=== PATIENT | male | born 1935 | race Caucasian/White ===

== ENCOUNTER 2023-09-10 08:05 | Emergency (ER) | payer MEDICARE, OTHER, SELFPAY ==
[2023-09-10 08:11] VITALS: BP 176/80; BMI 23.4
[2023-09-10 09:00] VITALS: BP 156/77
[2023-09-10 09:32] LABS: Hematocrit 29.1 % (39.0-52.0); Hemoglobin 9.3 g/dL (13.0-18.0); Mean Corpuscular Volume 68.1 fL (80.0-94.0); Red Blood Cell Count 4.27 10^6/uL (4.70-6.10); White Blood Cell Count 9.7 10^3/uL (4.8-10.8)
[2023-09-10 09:33] LABS: Mean Corpuscular Hgb 21.8 pg (27.0-31.0); Mean Platelet Volume 9.9 fL (7.4-10.4); Platelet Count 205 10^3/uL (130-400); Red Cell Dist. Width 17.5 % (11.5-14.5)
--- NOTE | 2023-09-10 09:36 | ED.GENMED ---
History of Present Illness
General
Chief Complaint: Breathing Problem
Source: patient
Exam Limitations: none
Time Seen by Provider: 09/10/23 08:08
Nursing documentation reviewed up to this point in time: agreed with
Travel History
Have you had any contact with someone who has COVID-19?: No
Do you have any symptoms of coronavirus? Fever > 100 degrees, chills, cough, shortness of breath, sore throat, loss of taste or smell, muscle aches, or headache?: No
History of Present Illness
History of Present Illness:
Patient status post clavicle fracture 5 days ago chemical fall, status post full dialysis session yesterday, presents to ED after waking up this morning short of breath. However, upon sitting and out of bed, his shortness of breath resolved
completely. At the time of evaluation ED, patient is without any complaints. Denies chest pain. Denies back pain. Denies leg pain or swelling. Denies nausea or vomiting. Patient denies previous history of similar symptoms.
Past History
Past History
ED Past Medical History: HTN, Hypercholesterolemia, NIDDM, Renal failure and Other (Constipation, irritable bowel syndrome)
ED Past Surgical History: Tonsilectomy and Other (Hemodialysis graft left upper arm)
Social History
Tobacco: Non-smoker
Alcohol: None
Drug: None
Personal:
Living: with family
Employment: Retired
Review of Systems
Review of Systems
Allergies reviewed?: Yes
All Other Systems: ROS reviewed and negative except as documented in HPI and ROS
Constitutional: Reports no symptoms; Denies fever
EENT: Reports no symptoms
Respiratory: Reports trouble breathing
Cardiac: Denies chest pain
ABD/GI: Reports no symptoms
: Reports no symptoms
Musculoskeletal: Reports no symptoms; Denies edema
Skin: Reports no symptoms
Neurological: Reports no symptoms
Phy Exam
Physical Exam
Physical Exam:
Physical Exam
General: no apparent distress, not acutely ill. afebrile
Head: nc/at. eomi
Neck: supple. no meningeal signs.
Heart: s1/s2 regular rate and rhythm, no murmur. equal radial pulses.
Lungs: no acute respiratory distress. clear bilaterally
Abdomen: normal bowel sounds. not tender.
Neuro: alert and oriented. no focal neurological deficits
Skin: no rash
Psychiatric: well kept. interactive and cooperative
Extremities: no edema. no calf tenderness.
Scores
Heart Failure Risk
Heart Failure Risk Score: Not Applicable
Course
Orders/Labs/Results
Orders:
Orders
09/10/23 08:10
Electrocardiogram (*1) Urgent
Reason for Study: Shortness of Breath
EKG- Treatment ONCE
09/10/23 09:20
CR Chest - 2 Views Urgent
Comment:
Reason For Exam: sob
09/10/23 09:21
Basic Metabolic Panel Urgent
Complete Blood Count/No Diff Urgent
Magnesium Urgent
NT-proBNP Urgent
Abnormal Lab Results
09/10/23
09:21
RBC 4.27 L 10^6/uL
(4.70-6.10)
Hgb 9.3 L g/dL
(13.0-18.0)
Hct 29.1 L %
(39.0-52.0)
MCV 68.1 L fL
(80.0-94.0)
MCH 21.8 L pg
(27.0-31.0)
MCHC 32.0 L g/dL
(33.0-37.0)
RDW 17.5 H %
(11.5-14.5)
Sodium 133 L mmol/L
(135-145)
Chloride 93 L mmol/L
(98-107)
Carbon Dioxide 34 H mmol/L
(22-30)
BUN 34 H mg/dl
(9-20)
Creatinine 4.1 H* mg/dL
(0.7-1.3)
Glucose 105 H mg/dl
(70-99)
09/10/23 09:21
09/10/23 09:21
Vital Signs
Initial and Last Documented VS:
Initial Vital Signs
Temp Pulse Resp BP Pulse Ox
98.2 F 72 16 176/80 98
09/10/23 08:11 09/10/23 08:11 09/10/23 08:11 09/10/23 08:11 09/10/23 08:11
Last Documented Vital Signs
Temp Pulse Resp BP Pulse Ox
98.2 F 69 23 145/72 97
09/10/23 08:11 09/10/23 10:15 09/10/23 10:15 09/10/23 10:00 09/10/23 10:15
MDM/Problems Addressed
MDM/Problems Addressed:
Patient remains asymptomatic with stable vital signs, without any acute respiratory distress during observation ED. H&H within normal limits. Chest x-ray without acute findings. Patient will be discharged in stable condition, to the care of his
family, with recommendation to follow-up with PCP for reevaluation, along with scheduled dialysis tomorrow.
*Critical Care Note
Total Time (30-74mins, 75-104mins- exclusive of procedures): Not Applicable
ED Attending Note
-
Portions of this chart may have been created with voice recognition software.� Occasional wrong word or��sound alike� substitutions may have occurred due to the inherent limitations of voice recognition software.
Discharge Plan
Departure
Patient Disposition: Home (Routine Discharge)
Date of Disposition: 09/10/23
Time of Disposition: 10:37
Patient with high blood pressure during this ER visit?: Yes
Discharge Problem:
Dyspnea
Instructions: Shortness of Breath (Dyspnea) (DC)
Prescriptions:
No Action
atorvastatin 40 MG tablet
40 mg PO DAILY
ropinirole 0.25 MG tablet
0.5 mg PO DAILY@1999
sertraline 50 MG tablet
100 mg PO DAILY
pantoprazole 40 MG tablet,delayed release (DR/EC)
40 mg PO BID 30 Days Qty: 60 0RF
acetaminophen [Tylenol Extra Strength] 500 mg Tablet
1,000 mg PO TIDPRN PRN (Reason: mild pain)
insulin glargine [Lantus Solostar U-100 Insulin] 100 unit/mL (3 mL) Insulin Pen
11 unit SC DAILY
Centrum Silver 400-250 mcg Tablet,Chewable
2 tab PO DAILY PRN (Reason: supplement)
ProRenal 8 mg iron-800 mcg-1,000 unit Tablet
1 tab PO SUTUTHSA@1200
Patient Comments:
09/10/2023, on non-dialysis days will take @1200.
ProRenal 8 mg iron-800 mcg-1,000 unit Tablet
1 tab PO MOWEFR@1600
Patient Comments:
09/10/2023, takes after dialysis on MoWeFr@1600.
mirtazapine 15 mg Tablet
7.5 mg PO DAILY@1999
sevelamer carbonate 800 mg Tablet
800 mg PO DAILY
Patient Comments:
09/10/2023, spouse states pt. only takes once a day in the morning despite being prescribed TID with meals.
Referrals:
Soni Johnson MD [Family Provider] -
Activity Restrictions/Additional Instructions:
As discussed, please follow-up with your primary care physician with any further concerns. Please return to ED with recurrent shortness of breath.
Interventions
Interventions:
*Risk Screen - Suicide Last Done: 09/10/23 08:11
*General Assessment Last Done: 09/10/23 08:11
*Neglect/Abuse Screening Last Done: 09/10/23 08:11
ED- Fall Risk Assessment Last Done: 09/10/23 08:59
*ED COVID-19 Vaccine History Last Done: 09/10/23 08:11
*Nursing Disposition Last Done: 09/10/23 10:54
ED- Cardiac Assessment Last Done: 09/10/23 08:11
ED- Pulmonary Assessment Last Done: 09/10/23 08:11
Discharge Date and Time
Discharge Date/Time: 09/10/23 10:55
[2023-09-10 09:54] LABS: NT-proBNP 9150 pg/ml
[2023-09-10 10:00] VITALS: BP 145/72
[2023-09-10 10:04] LABS: Blood Urea Nitrogen 34 mg/dl (9-20); Calcium 8.8 mg/dl (8.4-10.2); Carbon Dioxide 34 mmol/L (22-30); Chloride 93 mmol/L (98-107); Estimated Creatinine Clearance 13 ml/min; Glucose 105 mg/dl (70-99); Magnesium 2.3 mg/dl (1.6-2.3); Potassium 4.5 mmol/L (3.5-5.1); Sodium 133 mmol/L (135-145); eGFR 13.48
== END 2023-09-10 10:55 | disposition home or self-care (01) ==
LOC: EMR 08:05
PROVIDERS: EMERGENCY PHYSICIAN Emergency Medicine; FAMILY PHYSICIAN Family Medicine
DX: R06.00 Dyspnea, unspecified (principal); E78.00 Pure hypercholesterolemia, unspecified; I12.0 Hypertensive chronic kidney disease with stage 5 chronic kidney disease or end stage renal disease; N18.9 Chronic kidney disease, unspecified; E11.22 Type 2 diabetes mellitus with diabetic chronic kidney disease; K58.9 Irritable bowel syndrome, unspecified; N18.6 End stage renal disease; Z99.2 Dependence on renal dialysis; Z91.81 History of falling; Z88.5 Allergy status to narcotic agent
CPT/HCPCS: 99283; 71046; 80048; 83735; 83880; 85027; 93005

== ENCOUNTER → 2023-10-28 08:16 | Outpatient (REF) | payer MEDICARE, OTHER, SELFPAY | LOC: DHCBS HW 08:16 | PROVIDERS: ATTENDING PHYSICIAN Nuclear Medicine Nuclear Cardiology; FAMILY PHYSICIAN Family Medicine | DX: I42.8 Other cardiomyopathies (principal); R55 Syncope and collapse; I45.10 Unspecified right bundle-branch block | CPT/HCPCS: 93306 ==

== ENCOUNTER → 2023-11-21 12:53 | Outpatient (REF) | payer MEDICARE, OTHER, SELFPAY | LOC: RAD 12:53 | PROVIDERS: ATTENDING PHYSICIAN Surgery Vascular Surgery; FAMILY PHYSICIAN Family Medicine | DX: I77.0 Arteriovenous fistula, acquired (principal) | CPT/HCPCS: 93990 ==

== ENCOUNTER 2023-12-05 08:15 | Day surgery (SDC) | payer MEDICARE, OTHER, SELFPAY ==
[2023-12-05] VITALS (11 sets, daily range): BP systolic 181–207; BP diastolic 71–87; BMI 20.7
[2023-12-05 08:58] LABS: Glucose - Point of Care 176 mg/dl (70-99)
--- NOTE | 2023-12-05 09:05 | W.SUR.PREOP ---
Pre-Operative Surgical Note
-
I have examined this patient prior to the performance of the scheduled procedure.
The patient's condition is unchanged from the time of the current History and
Physical and the patient is able to undergo the scheduled procedure.
[2023-12-05 09:20] LABS: Hematocrit 32.6 % (39.0-52.0); Hemoglobin 10.1 g/dL (13.0-18.0); Mean Corpuscular Hgb 21.2 pg (27.0-31.0); Mean Corpuscular Volume 68.5 fL (80.0-94.0); Mean Platelet Volume 10.1 fL (7.4-10.4); Platelet Count 171 10^3/uL (130-400); Red Blood Cell Count 4.76 10^6/uL (4.70-6.10); Red Cell Dist. Width 18.1 % (11.5-14.5); White Blood Cell Count 10.2 10^3/uL (4.8-10.8)
[2023-12-05 09:58] LABS: INR 1.13; PT 14.5 Sec (11.4-14.6)
[2023-12-05 09:59] LABS: APTT 31.8 Sec (23.4-35.0)
--- NOTE | 2023-12-05 10:03 | W.SUR.POST ---
Surgical Immediate Post Op
Note
Pre Op Diagnosis: ESRD
Post Op Diagnosis: ESRD
Procedure Performed: LUE fistulagram, balloon angioplasty outflow vein stenosis
Primary Surgeon: Bruec
Anesthesia: locla and sedation
Estimated Blood Loss: <2cc
Fluids: see anesthesia flow sheet
Drains/Shunts: none
Specimens/Cultures: none
Doppler/Duplex/Angio (Y/N): Y
Complications: none
Operative Findings: +thrill
[2023-12-05 10:18] LABS: Glucose - Point of Care 137 mg/dl (70-99)
[2023-12-05 10:20] LABS: Blood Urea Nitrogen 39 mg/dl (9-20); Calcium 8.3 mg/dl (8.4-10.2); Carbon Dioxide 30 mmol/L (22-30); Chloride 99 mmol/L (98-107); Estimated Creatinine Clearance 12 ml/min; Glucose 141 mg/dl (70-99); Potassium 3.8 mmol/L (3.5-5.1); Sodium 136 mmol/L (135-145); eGFR 14.32
--- NOTE | 2023-12-05 10:28 | OR.RPT ---
Operative Report
Operative Report
PROCEDURE DATE: 12/05/2023
Preoperative diagnosis:
1. End-stage renal disease on hemodialysis.
2. Prolonged bleeding after hemodialysis.
Postoperative diagnosis: Same
Procedure:
1. Left upper extremity fistulogram and central venogram.
2. Balloon angioplasty of outflow vein stenosis with 7 mm angioplasty balloon.
Surgeon: Bruce
Dredge Master: None
Complications: None
Anesthesia: Local, sedation
Fluoroscopy:
3.1 min
13 mGy
1.80 Gy.cm2
Indications for procedure:
End-stage renal disease on hemodialysis with transposed basilic vein fistula. Prolonged bleeding after hemodialysis. Concern for central venous or outflow vein stenosis. Was/benefit/alternatives of fistulogram were discussed. Patient understood
all wish to proceed.
Description of procedure:
Patient was identified, brought to the operating room. Placed on the table in the supine position. After the adequate administration of anesthesia, the patient was prepped and draped in the standard surgical fashion. A standard preoperative
timeout was undertaken and everybody was in agreement with the plan.
Left upper extremity fistula was punctured in the standard fashion using micropuncture kit under direct duplex ultrasound guidance and a central facing direction. This was done in the distal upper arm. I tried to avoid puncturing the aneurysmal
portion and punctured just peripherally to there. A 6 Albanian sheath was then advanced over a 0.035 inch wire. Left upper extremity fistulogram and central venogram were then performed. This demonstrated aneurysmal outflow as could be seen on
exam. Just beyond this aneurysmal segment at the juncture with the more normal vein, there was a severe weblike stenosis. Beyond there there was a mild web created in opacity but did not appear to cause a severe stenosis. I then advanced my glide
catheter over the wire and perform central venogram. Initially I thought there may have been a left subclavian vein stenosis, but on repeat imaging I did not see any significant stenosis. At this point therefore I then exchanged for a [place] wire.
I then used a 7 mm angioplasty balloon to balloon the severe area of stenosis in the fistula just beyond the aneurysmal area. There is significant waist in the balloon that resolved nicely. With the balloon inflated I performed reflux fistulogram
that demonstrated widely patent arterial anastomosis. Completion fistulogram demonstrated excellent result with no residual stenosis of the stenotic area. At this point I was satisfied. Wires and catheters were withdrawn. A 4-0 Monocryl
pursestring stitch was placed around the sheath entry site and this was removed while the stitch was tied down. Manual pressure was also applied. Hemostasis was achieved. The patient tolerated the procedure well.
== END 2023-12-05 12:05 | disposition home or self-care (01) ==
LOC: CATH 08:15
PROVIDERS: ATTENDING PHYSICIAN Surgery Vascular Surgery; FAMILY PHYSICIAN Family Medicine; OTHER PHYSICIAN Nuclear Medicine Nuclear Cardiology
DX: T82.838A Hemorrhage due to vascular prosthetic devices, implants and grafts, initial encounter (principal); Y83.2 Surgical operation with anastomosis, bypass or graft as the cause of abnormal reaction of the patient, or of later complication, without mention of misadventure at the time of the procedure; I12.0 Hypertensive chronic kidney disease with stage 5 chronic kidney disease or end stage renal disease; E11.22 Type 2 diabetes mellitus with diabetic chronic kidney disease; N18.6 End stage renal disease; Z99.2 Dependence on renal dialysis; Z79.4 Long term (current) use of insulin
CPT/HCPCS: 36902; 76937; 80048; 82962; 85027; 85610; 85730; 86850; 86900; 86901; C1725; C1769; C1894

== ENCOUNTER 2024-02-21 05:53 | Emergency (ER) | payer MEDICARE, OTHER, SELFPAY ==
[2024-02-21 05:55] VITALS: BP 191/80; BMI 23.5
--- NOTE | 2024-02-21 06:17 | ED.GENMED ---
History of Present Illness
General
Chief Complaint: Fall
Source: patient and spouse
Exam Limitations: none
Time Seen by Provider: 02/21/24 06:12
Nursing documentation reviewed up to this point in time: agreed with
History of Present Illness
History of Present Illness:
The patient is an 89-year-old man who reports that he got up out of bed around 1 AM and fell onto the floor from a standing position onto his left side. The fall was witnessed by his who heard him scream. She reports that he vomited after the
fall but got back in bed and went to sleep. The patient denies headache at this time. He reports he is not exactly sure why he fell. His reports that from time to time he does get confused and wakes up at night. She denies any recent fever,
or any acute illnesses. His reports that she wanted him checked out because because his left side still hurts from the fall. Patient denies headache and vision changes. The patient reports he thinks he hit the back of his head during the
fall. Patient denies abdominal pain, nausea and vomiting at this time. He denies neck pain. He denies weakness and numbness of his arms and legs. Patient reports he feels well other than pain in his left rib area. Patient denies any other areas
of chest pain or shortness of breath. He denies cough. He denies any recent or current dizziness
Past History
Past History
ED Past Medical History: HTN, Hypercholesterolemia, NIDDM, Renal failure and Other (Constipation, irritable bowel syndrome)
ED Past Surgical History: Tonsilectomy and Other (Hemodialysis graft left upper arm)
Social History
Tobacco: Non-smoker
Alcohol: None
Drug: None
Personal:
Living: with family
Employment: Retired
Family History
Family History: Other
Review of Systems
Review of Systems
Allergies reviewed?: Yes
All Other Systems: ROS reviewed and negative except as documented in HPI and ROS
Constitutional: Reports no symptoms
EENT: Reports no symptoms
Respiratory: Reports no symptoms
Cardiac: Reports other (Chest wall pain)
ABD/GI: Reports vomiting
: Reports no symptoms
Musculoskeletal: Reports muscle stiffness
Skin: Reports no symptoms
Neurological: Reports no symptoms
Endocrine: Reports no symptoms
Hematologic/Lymphatic: Reports no symptoms
Psychiatric: Reports no symptoms
Phy Exam
Physical Exam
Physical Exam:
Physical Exam
General: no apparent distress, not acutely ill. Comfortable appearing. Conversational. Hard of hearing. Atraumatic appearing face and head. No areas of scalp contusion or tenderness.
Neck: supple. no meningeal signs. normal psoterior pharynx. Nontender C-spine
Heart: s1/s2 regular rate and rhythm, mild left lateral rib cage tenderness at nipple line without ecchymoses or erythema. No crepitus felt
Lungs: no acute respiratory distress. clear bilaterally. No vertebral spine tenderness throughout
Abdomen: Soft throughout. No tenderness on palpation. Nondistended. Normal bowel sounds
Neuro: alert and oriented. no focal neurological deficits. Cranial nerves symmetric bilaterally. Answers all questions. 5 out of 5 strength in all extremity
Skin: no rash
Psychiatric: well kept. interactive and cooperative
Extremities: no edema. no calf tenderness. Upper and lower extremities are nontender. Able to fully extend and flex both hips bilaterally without any pain
Course
Orders/Labs/Results
Orders:
Orders
02/21/24
Electrocardiogram (*1) Stat
Other Reason for Exam: CP
02/21/24 06:12
CT Head W/o Iv Contrast Urgent
Comment:
Reason For Exam: fall, hit head
Ribs, Left 3 View W/PA Chest CR [CR Ribs-left 3 Vw W/pa Chest] Urgent
Comment:
Reason For Exam: fall, left lateral rib pain
Vital Signs
Initial and Last Documented VS:
Initial Vital Signs
Temp Pulse Resp BP Pulse Ox
98.5 F 93 18 191/80 96
02/21/24 05:55 02/21/24 05:55 02/21/24 05:55 02/21/24 05:55 02/21/24 05:55
Last Documented Vital Signs
Temp Pulse Resp BP Pulse Ox
98.5 F 93 18 191/80 97
02/21/24 05:55 02/21/24 05:55 02/21/24 05:55 02/21/24 05:55 02/21/24 06:06
MDM/Problems Addressed
Differential Diagnosis Includes:
Rib fracture, rib contusion, closed head injury
MDM/Problems Addressed:
Patient presents after an acute fall with acute left lateral rib cage pain
Chronic conditions affecting care: HTN
Acute Exacerbation and/or Progression of Chronic Illness:
Patient is acutely hypertensive, however, he has not had his medication yet for dialysis. Patient has a nonfocal neurological exam there is no sign of stroke.
Acute Exacerbation and/or Progression of Chronic Illness: HTN
*Radiology
Radiology exam reviewed: preliminary read by ED provider (No rib fracture seen by me.) and radiology read reviewed
*Pulse Oximetry
Patient hypoxic: no
*EKG
Interpreted by ED Provider?: Yes
Interpretation: abnormal
Comparison EKG: changes noted
Rate: normal
Rhythm: sinus
[place]: left axis deviation
Interval: first degree heart block
QRS Pattern: normal QRS
Ischemia: non-specific ST changes
*Director [employer] Interpretation
Rate: normal
Interpretation: normal
Rhythm: sinus
*Critical Care Note
Total Time (30-74mins, 75-104mins- exclusive of procedures): 40 minutes
comment:
40 minutes of critical care given to the patient including discussing the case with Dr. Garcias from neurosurgery, as well as the trauma attending, Dr. Lomas from [facility].
Time also spent discussing the case and explaining condition to the patient's and patient, as well as frequently reassessing his mental status and reviewing his CAT scan and x-ray
Data Reviewed
Review of Other/Old Records Reveals: Operative Reports (Vascular surgery operative report reviewed from 11/2023 when patient had prolonged bleeding after hemodialysis)
Source: patient and spouse
Patient Management
Social determinants of health affecting care: Living situation and Strong social support
Discussion with other providers: Other (Dr. Adan from neurosurgery who reviewed patient's CT and recommends transfer to [facility])
Escalation/DeEscalation of care consider admission/obs:
Patient formally accepted to [facility] trauma for traumatic subdural hematoma. Remains very well and stable in the emergency department. Continues to have no neck pain or any difficulty breathing. Abdomen remains completely soft and nontender.
Update Note
Update Note:
gave written consent for transfer to [facility]. Accepting doc is Dr. Lomas from trauma, who recommended that patient go to [facility] emergency department.
ED Attending Note
-
Portions of this chart may have been created with voice recognition software.� Occasional wrong word or��sound alike� substitutions may have occurred due to the inherent limitations of voice recognition software.
Discharge Plan
Departure
Patient Disposition: Acute Care Hospital
Date of Disposition: 02/21/24
Time of Disposition: 07:36
Patient with high blood pressure during this ER visit?: Yes
Condition: Good
Covid-19: Not Applicable
Discharge Problem:
Traumatic subdural hematoma, Contusion of rib on left side
Prescriptions:
No Action
atorvastatin 40 MG tablet
40 mg PO DAILY
ropinirole 0.25 MG tablet
0.5 mg PO DAILY@1999
sertraline 50 MG tablet
100 mg PO DAILY
insulin glargine [Lantus Solostar U-100 Insulin] 100 unit/mL (3 mL) Insulin Pen
11 unit SC DAILY
ProRenal 8 mg iron-800 mcg-1,000 unit Tablet
1 tab PO SUTUTHSA@1200
Patient Comments:
09/10/2023, on non-dialysis days will take @1200.
ProRenal 8 mg iron-800 mcg-1,000 unit Tablet
1 tab PO MOWEFR@1600
Patient Comments:
09/10/2023, takes after dialysis on MoWeFr@1600.
mirtazapine 15 mg Tablet
7.5 mg PO BID
sevelamer carbonate 800 mg Tablet
800 mg PO DAILY
Patient Comments:
09/10/2023, spouse states pt. only takes once a day in the morning despite being prescribed TID with meals.
Referrals:
Soni Johnson MD [Family Provider] -
Hospital Transfer
Other hospital: [facility]
I certify that the patient requires transfer: Yes
Discussed case with accepting physician: Dr. Lomas from [facility]
Reason for transfer: availability of service
Interventions
Interventions:
*Risk Screen - Suicide Last Done: 02/21/24 05:55
*General Assessment Last Done: 02/21/24 05:55
*Neglect/Abuse Screening Last Done: 02/21/24 05:55
ED- Fall Risk Assessment Last Done: 02/21/24 06:06
*ED COVID-19 Vaccine History Last Done: 02/21/24 05:55
ED-Musculoskeletal Assessment Last Done: 02/21/24 06:06
ED- Neurological Assessment Last Done: 02/21/24 06:06
ED-Skin Assessment Last Done: 02/21/24 06:06
Discharge Date and Time
Print Language: AMHARIC
[2024-02-21 07:30] VITALS: BP 176/74
[2024-02-21 08:30] VITALS: BP 179/79
[2024-02-21 08:53] LABS: Glucose - Point of Care 110 mg/dl (70-99)
[2024-02-21 09:11] VITALS: BP 179/76
== END 2024-02-21 09:13 | disposition short-term general hospital (02) ==
LOC: EMR 05:53
PROVIDERS: EMERGENCY PHYSICIAN Emergency Medicine; FAMILY PHYSICIAN Family Medicine
DX: S06.5XAA Traumatic subdural hemorrhage with loss of consciousness status unknown, initial encounter (principal); S20.212A Contusion of left front wall of thorax, initial encounter; W06.XXXA Fall from bed, initial encounter; E78.00 Pure hypercholesterolemia, unspecified; E11.9 Type 2 diabetes mellitus without complications; I12.9 Hypertensive chronic kidney disease with stage 1 through stage 4 chronic kidney disease, or unspecified chronic kidney disease; E11.22 Type 2 diabetes mellitus with diabetic chronic kidney disease; N18.9 Chronic kidney disease, unspecified; K58.9 Irritable bowel syndrome, unspecified; Z99.2 Dependence on renal dialysis
CPT/HCPCS: 99284; 70450; 71101; 82962; 93005

== ENCOUNTER → 2024-10-20 11:04 | Outpatient (REF) | payer MEDICARE, OTHER, SELFPAY | LOC: RAD 11:04 | PROVIDERS: ATTENDING PHYSICIAN Surgery Vascular Surgery | DX: N18.4 Chronic kidney disease, stage 4 (severe) (principal); I77.0 Arteriovenous fistula, acquired | CPT/HCPCS: 93990 ==

== ENCOUNTER 2024-11-12 10:04 | Day surgery (SDC) | payer MEDICARE, OTHER, SELFPAY ==
[2024-11-12] VITALS (12 sets, daily range): BP systolic 130–166; BP diastolic 56–89; BMI 22.2
[2024-11-12 11:04] LABS: Blood Urea Nitrogen 27 mg/dl (9-20); Calcium 9.5 mg/dl (8.4-10.2); Carbon Dioxide 35 mmol/L (22-30); Chloride 96 mmol/L (98-107); Glucose 121 mg/dl (70-99); Potassium 4.4 mmol/L (3.5-5.1); Sodium 141 mmol/L (135-145); eGFR 15.66
[2024-11-12 11:15] LABS: INR 1.01; PT 13.8 Sec (11.4-14.6)
[2024-11-12 11:16] LABS: APTT 31.5 Sec (23.4-35.0)
[2024-11-12 11:21] LABS: Hematocrit 32.2 % (39.0-52.0); Hemoglobin 9.8 g/dL (13.0-18.0); Mean Corp Hgb Conc. 30.4 g/dL (33.0-37.0); Mean Corpuscular Hgb 21.2 pg (27.0-31.0); Mean Corpuscular Volume 69.7 fL (80.0-94.0); Mean Platelet Volume 9.3 fL (7.4-10.4); Platelet Count 149 10^3/uL (130-400); Red Blood Cell Count 4.62 10^6/uL (4.70-6.10); Red Cell Dist. Width 17.3 % (11.5-14.5); White Blood Cell Count 9.1 10^3/uL (4.8-10.8)
[2024-11-12 14:06] LABS: Glucose - Point of Care 119 mg/dl (70-99)
--- NOTE | 2024-11-12 15:16 | OR.RPT ---
Operative Report
Operative Report
PROCEDURE DATE: 11/12/2024
Preoperative diagnosis:
1. End-stage renal disease on hemodialysis.
2. Prolonged bleeding after hemodialysis.
3. Recurrent outflow vein stenosis.
Postoperative diagnosis: Same
Procedure:
1. Left upper extremity fistulogram and central venogram.
2. Balloon angioplasty of outflow vein stenosis with 7 mm angioplasty balloon.
3. Supervision and interpretation.
Surgeon: Bruce
Energy Technician: None
Complications: None
Anesthesia: Local, sedation
Fluoroscopy:
2.5 min
20 mGy
4.38 Gy.cm2
Indications for procedure:
End-stage renal disease on hemodialysis. Prolonged bleeding again after hemodialysis. Recurrent stenosis noted on ultrasound imaging (prior had undergone angiography with angioplasty about a year ago). Risk/benefit/alternatives of fistulogram
were fully discussed. Patient understood all wished to proceed.
Description of procedure:
Patient was identified, brought to the operating room. Placed on the table in the supine position. After the adequate administration of anesthesia, the patient was prepped and draped in the standard surgical fashion. A standard preoperative
timeout was undertaken and everybody was in agreement with the plan.
Under direct duplex ultrasound guidance the immediate outflow vein of the fistula in the distal upper arm area was punctured in a central facing direction using a micropuncture kit. A fistulogram was performed through the micropuncture sheath.
This demonstrated a patent aneurysmal proximal outflow segment of the fistula and as had been seen on prior fistulogram just at the distal edge of the aneurysmal segment, there was a severe focal stenosis. Central venogram demonstrated no evidence
of any other central venous stenosis. At this point I exchanged by micropuncture sheath for a 5 Turkish sheath over a 0.035 inch wire. I was able to float my wire through that area of stenosis without difficulty. I then exchanged for a [employer] Stepq wire.
Next I performed angioplasty of the stenotic segment with a 7 mm angioplasty balloon. There was a definitive waist that then completely resolved as I inflated the balloon to nominal pressure. Completion angiogram demonstrated good resolution of
the stenosis. Given the fact that this had been a recalcitrant recurrent stenosis, I debated placing a stent. However the stent would have to be splayed into the aneurysmal segment and I felt that that would not sit as well. In addition, I was
able to get the waist to resolve completely with the standard balloon angioplasty and therefore felt that this should decrease to pressure head and therefore decrease his prolonged bleeding. Therefore at this point, my wires and catheters were
withdrawn. A 4-0 Monocryl pursestring stitch was placed around the sheath entry site and the sheath was withdrawn as manual pressure was applied. Manual pressure was also gently applied. Hemostasis was fully achieved. The patient had a good
thrill/pulsatility in the fistula upon completion. He tolerated the procedure well
[2024-11-12 15:18] LABS: Glucose - Point of Care 120 mg/dl (70-99)
== END 2024-11-12 16:45 | disposition home or self-care (01) ==
LOC: CATH 10:04
PROVIDERS: ATTENDING PHYSICIAN Surgery Vascular Surgery; FAMILY PHYSICIAN Family Medicine; OTHER PHYSICIAN Nuclear Medicine Nuclear Cardiology
DX: T82.858D Stenosis of other vascular prosthetic devices, implants and grafts, subsequent encounter (principal); Y83.2 Surgical operation with anastomosis, bypass or graft as the cause of abnormal reaction of the patient, or of later complication, without mention of misadventure at the time of the procedure; I12.0 Hypertensive chronic kidney disease with stage 5 chronic kidney disease or end stage renal disease; E11.22 Type 2 diabetes mellitus with diabetic chronic kidney disease; N18.6 End stage renal disease; Z99.2 Dependence on renal dialysis; Z79.4 Long term (current) use of insulin
CPT/HCPCS: 36902; 80048; 82962; 85027; 85610; 85730; 86850; 86900; 86901; 93005; C1725; C1769; C1894; Q9967

== ENCOUNTER → 2025-07-02 11:25 | Outpatient (REF) | payer OTHER, MEDICARE, SELFPAY ==
[2025-07-02 11:46] LABS: Hemoglobin 9.5 g/dL (13.0-18.0)
== END ==
LOC: OLAB 11:25
PROVIDERS: ATTENDING PHYSICIAN Specialist
DX: N18.6 End stage renal disease (principal)
CPT/HCPCS: 36415; 85018